=== PATIENT | male | born 2000 | race Caucasian/White ===

== ENCOUNTER 2022-04-12 09:47 | Emergency (ER) | payer OTHER, SELFPAY ==
[2022-04-12 09:53] VITALS: BP 121/64; PULSE 114; RESP 20; TEMP 38.5; O2SAT 97; BMI 29.0
--- NOTE | 2022-04-12 10:16 | ED.GENADULT ---
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 He has had a fever for a couple of days, facial congestion, and some body aches. No skin rashes, mild sore throat, mild ear fullness. Christopher has been very healthy. No chronic medications, no chronic health problems. No shortness of breath, no chest pain, no rigors. He does have muscle aches. Related Data Home Medications Medication Instructions Recorded Confirmed No Known Home Medications 04/12/22 04/12/22 Allergies Allergy/AdvReac Type Severity Reaction Status Date / Time No Known Drug Allergies Allergy Verified 04/12/22 09:58 Review of Systems Status of ROS: Reports: 6 or more systems reviewed and unremarkable except as noted in History and below PFSH PFSH Social History Smoking Status: Never smoker Do you use any of these nicotine containing products: None Second hand tobacco smoke exposure: No How often do you have a drink containing alcohol: 2-3 times a week How many standard drinks containing alcohol do you have on a typical day: 3 or 4 How often do you have six or more drinks on one occasion: Never AUDIT-C Alcohol total score: 4 Non-prescribed substance use: marijuana (any form) Exam Narrative: Exam Narrative: Objective: Patient is in no apparent distress, he does have a temperature. He does report he is able to drink water and eat. HEENT is unremarkable, other than mild serous otitis bilaterally. He has no otitis media, no frontal or maxillary sinus tenderness to palpation, throat appears clear as mention. Neck is supple Chest is clear no rales or wheezing, pulses regular Extremities show good perfusion Patient is ambulatory and again does not appear distressed, is noncyanotic Const: Vital Signs, click to edit/add: Vital Signs - 24 hr 04/12/22 09:53 Temperature 101.3 F H Pulse Rate [Right Pulse Oximeter] 114 H Respiratory Rate 20 Blood Pressure [Ri ght Upper Arm] 121/64 Pulse Oximetry 97 Course Course Hospital Course: Patient will get a mono nuclear [place] blood test, CBC, COVID test, strep test Vital Signs Vital signs: Initial Vital Signs Temperature 101.3 F H 04/12/22 09:53 Temperature Source Oral 04/12/22 09:53 Pulse Rate 114 H 04/12/22 09:53 Pulse Rhythm 04/12/22 09:53 Respiratory Rate 20 04/12/22 09:53 Blood Pressure 121/64 04/12/22 09:53 Blood Pressure Mean 83 04/12/22 09:53 Blood Pressure Position Sitting 04/12/22 09:53 Pulse Oximetry 97 04/12/22 09:53 Oxygen Delivery Method 04/12/22 09:53 Vital Signs Temperature 101.3 F H 04/12/22 09:53 Pulse Rate 114 H 04/12/22 09:53 Respiratory Rate 20 04/12/22 09:53 Blood Pressure 121/64 04/12/22 09:53 Pulse Oximetry 97 04/12/22 09:53 Temperature 101.3 F H 04/12/22 09:53 Pulse Rate 114 H 04/12/22 09:53 Respiratory Rate 20 04/12/22 09:53 Blood Pressure 121/64 04/12/22 09:53 Pulse Oximetry 97 04/12/22 09:53 Medical Decision Making MDM Narrative Medical decision making narrative: Patient has upper respiratory infection symptoms with fever, but appears clinically well. He is able to take fluids adequately. He appears well hydrated. At this point I think ruling out mononucleosis, strep, COVID, and performing a CBC would be appropriate. The family will be in town today, will we will call them back with the results of the test testing and treat where appropriate. They are comfortable that plan Lab Data Labs: Lab Results 04/12/22 04/12/22 04/12/22 Range/Units 10:14 10:26 10:26 WBC 3.93 L (4.50-11.00) K/uL RBC 5.24 (4.30-5.90) m/uL Hgb 15.1 (13.5-17.5) gm/dL Hct 43.1 (37.0-53.0) % MCV 82 (80-100) fL MCH 29 (26-34) pg MCHC 35 (32-36) gm/dL RDW Coeff of Laura 11.6 (11.5-15.5) % Plt Count 129 L (140-440) K/uL Neut % (Auto) 48.5 (42.0-72.0) % Lymph % (Auto) 42.7 (20-44) % [place] % (Auto) 7.4 (0.0-11.0) % Eos % (Auto) 0.3 (0.0-7.0) % Baso % (Auto) 0.8 (0.0-3.0) % Neut # (Auto) 1.90 (1.7-7.0) K/uL Lymph # (Auto) 1.70 (0.90-2.90) K/uL Brewster # (Auto) 0.30 (0.00-0.90) K/UL Eos # (Auto) 0.00 (0.00-0.50) K/uL Baso # (Auto) 0.00 (0.00-0.30) K/uL Abs Immat Gran (auto) 0.01 (0.00-0.30) K/uL SARS-CoV-2 (PCR) (Negative) Monoscreen POSITIVE A (Negative) Group A Strep DNA NOT DETECTED (No Detected) 04/12/22 Range/Units 10:27 WBC (4.50-11.00) K/uL RBC (4.30-5.90) m/uL Hgb (13.5-17.5) gm/dL Hct (37.0-53.0) % MCV (80-100) fL MCH (26-34) pg MCHC (32-36) gm/dL RDW Coeff of Laura (11.5-15.5) % Plt Count (140-440) K/uL Neut % (Auto) (42.0-72.0) % Lymph % (Auto) (20-44) % Brewster % (Auto) (0.0-11.0) % Eos % (Auto) (0.0-7.0) % Baso % (Auto) (0.0-3.0) % Neut # (Auto) (1.7-7.0) K/uL Lymph # (Auto) (0.90-2.90) K/uL Brewster # (Auto) (0.00-0.90) K/UL Eos # (Auto) (0.00-0.50) K/uL Baso # (Auto) (0.00-0.30) K/uL Abs Immat Gran (auto) (0.00-0.30) K/uL SARS-CoV-2 (PCR) Negative SARS-CoV-2 (Negative) Monoscreen (Negative) Group A Strep DNA (No Detected) Discharge Plan Discharge Clinical Impression: Acute upper respiratory infection, Fever Patient Disposition: Home w/ Parent or Adult Additional Instructions: Rest, fluids, Tylenol and Advil as needed, call back in 2-3 hours if having heard about results. Recheck with regular doctor in the next 2 3 days not improving sooner changes or concerns Activity Level: Light activity Discharge Diet: Regular Prescriptions: No Action No Known Home Medications 0RF Stand Alone Forms: [facility] Info Instructions
[2022-04-12 10:37] LABS: Basophils Percent Auto 0.8 % (0.0-3.0); Eosinophils Percent Auto 0.3 % (0.0-7.0); Hematocrit 43.1 % (37.0-53.0); Hemoglobin* 15.1 gm/dL (13.5-17.5); Immature Granulocytes Abs Auto 0.01 K/uL (0.00-0.30); Lymphocytes Percent Auto 42.7 % (20-44); Mean Corpuscular HGB Conc 35 gm/dL (32-36); Mean Corpuscular Hemoglobin 29 pg (26-34); Mean Corpuscular Volume 82 fL (80-100); Monocytes Percent Auto 7.4 % (0.0-11.0); Neutrophils Percent Auto 48.5 % (42.0-72.0); Platelet Count* 129 K/uL (140-440); RDW Coefficient of Variation % 11.6 % (11.5-15.5); Red Blood Count 5.24 m/uL (4.30-5.90); White Blood Count* 3.93 K/uL (4.50-11.00)
[2022-04-12 10:53] LABS: Mono Screen* POSITIVE (Negative)
[2022-04-12 10:56] LABS: Strep A DNA Probe* NOT DETECTED (No Detected)
[2022-04-12 11:20] LABS: SARS PCR* Negative SARS-CoV-2 (Negative)
[2022-04-12 11:30] LABS: Slide Review Reflex No
== END 2022-04-12 10:52 | disposition home or self-care (01) ==
PROVIDERS: Emergency Provider Family Medicine
DX: B27.90 Infectious mononucleosis, unspecified without complication (principal)
CPT/HCPCS: 36415; 85025; 86308; 87635; 87651; 99282; 99283